=== PATIENT | male | born 1970 | race Hispanic/Latino ===

== ENCOUNTER 2021-10-30 20:27 | Observation (INO) | payer BC ==
[~2021-10-30 20:27] MED LIST: Iopamidol 370 76% 100 ML VIAL ONE
[2021-10-30] MEDS ORDERED: Dexamethasone 10 MG/ML VIAL ONE (21:02)
[2021-10-30] MEDS ORDERED: Acetaminophen 500 MG TAB ONE (21:02)
[2021-10-30 21:12] LABS: #Eosinphils 0.2 10x3/uL (0.0-0.5); #Monocytes 0.6 10x3/uL (0.0-1.1); #Neutrophils 3.3 10x3/uL (1.5-8.4); %Basophils 0.4 % (0.0-2.0); %Eosinophils 3.1 % (0.0-6.0); %Lymphocytes 21.3 % (18.0-47.0); %Monocytes 11.6 % (0.0-10.0); %Neutrophils 63.4 % (40.0-75.0); Mean Corpuscular HGB CONC 36.4 g/dL (32.0-36.0); Mean Corpuscular Hemoglobin 32.2 pg (27.0-33.0); Mean Corpuscular Volume 88.3 fl (81.2-95.1); Mean Platelet Volume 10.3 fl (7.4-10.4); Platelet Count 226 10x3/uL (150-450); Red Blood Cell (RBC) Count 4.97 10x6/uL (4.32-5.72); White Blood Cell (WBC) Count 5.2 10x3/uL (3.5-10.5)
[2021-10-30 21:25] LABS: ALT (SGPT) 79 U/L (8-55); AST (SGOT) 37 U/L (5-34); Albumin 4.4 g/dL (3.5-5.0); Alkaline Phosphatase 117 U/L (40-110); Anion Gap 15 mmol/L (10-20); BUN (Urea Nitrogen) 12 mg/dL (8.4-25.7); Bilirubin, Total 0.8 mg/dL (0.2-1.2); Calc. Creatinine Clearance 0 mL/min (70-130); Calcium 9.1 mg/dL (7.8-10.44); Carbon Dioxide 29 mmol/L (22-29); Chloride 98 mmol/L (98-107); Globulin 2.7 g/dL (2.4-3.5); Glucose 138 mg/dL (70-105); Potassium 3.8 mmol/L (3.5-5.1); Protein, Total 7.1 g/dL (6.0-8.3); Sodium 138 mmol/L (136-145)
[2021-10-30] MEDS ORDERED: Azithromycin 500 MG VIAL ONE (22:21)
[2021-10-30] MEDS ORDERED: Enoxaparin Sodium 80 MG/0.8 ML SYRINGE ONE (22:21)
[2021-10-30 22:56] LABS: SARS-CoV-2 NAA Rapid Test DETECTED (NotDetected)
[2021-10-30] MEDS ORDERED: Benzonatate 100 MG CAP PO PRN (23:06)
[2021-10-30] MEDS ORDERED: Acetaminophen 650 MG Suppository PR PRN (23:06)
[2021-10-30] MEDS ORDERED: Acetaminophen 325 MG TAB PO PRN (23:06)
[2021-10-30] MEDS ORDERED: Albuterol 200 PUFF (6.7GM INHALER) INH PRN (23:06)
[2021-10-30] MEDS ORDERED: diphenhydrAMINE 25 MG CAP PO PRN (23:12)
[2021-10-30] MEDS ORDERED: Communication Order-Pharmacy FS SCH (23:13)
[2021-10-30 23:40] LABS: D-Dimer Test 1.47 mg/L FEU (0.19-0.50); PTT 26.2 sec (22.0-33.0); Prothrombin Time 10.6 sec (9.5-12.1)
[2021-10-31] MEDS ORDERED: diphenhydrAMINE 25 MG CAP PO SCH (00:30)
[2021-10-31] MEDS ORDERED: diphenhydrAMINE 25 MG CAP ONE (02:14)
[2021-10-31] MEDS ORDERED: Ventolin HFA Inhaler 60 PUFF INHALER INH PRN (03:15)
[2021-10-31 03:21] LABS: Mean Corpuscular HGB CONC 36.4 g/dL (32.0-36.0); Mean Corpuscular Hemoglobin 32.2 pg (27.0-33.0); Mean Corpuscular Volume 88.4 fl (81.2-95.1); Mean Platelet Volume 10.4 fl (7.4-10.4); Platelet Count 212 10x3/uL (150-450); RBC Distribution Width 11.9 % (11.5-14.5); Red Blood Cell (RBC) Count 4.66 10x6/uL (4.32-5.72); White Blood Cell (WBC) Count 3.9 10x3/uL (3.5-10.5)
[2021-10-31 03:22] LABS: MDiff Complete? YES; Manual Diff?? YES
[2021-10-31 04:16] LABS: Band 15 % (5-11); Lymphocytes 20 % (21-51); Monocytes 3 % (0-10); Neutrophil 57 % (42-75); Reactive Lymphocytes 5 % (0-10)
[2021-10-31 04:17] LABS: Platelet Morphology Comment Appears Adequate
[2021-10-31 04:18] LABS: Toxic Granulation SLIGHT; Vacuoles SLIGHT
[2021-10-31 04:42] LABS: ALT (SGPT) 111 U/L (8-55); AST (SGOT) 81 U/L (5-34); Albumin 3.9 g/dL (3.5-5.0); Alkaline Phosphatase 143 U/L (40-110); Anion Gap 16 mmol/L (10-20); BUN (Urea Nitrogen) 12 mg/dL (8.4-25.7); Bilirubin, Total 0.6 mg/dL (0.2-1.2); Calc. Creatinine Clearance 0 mL/min (70-130); Calcium 8.4 mg/dL (7.8-10.44); Carbon Dioxide 21 mmol/L (22-29); Chloride 104 mmol/L (98-107); Globulin 2.8 g/dL (2.4-3.5); Glucose 180 mg/dL (70-105); Potassium 4.1 mmol/L (3.5-5.1); Protein, Total 6.7 g/dL (6.0-8.3); Sodium 137 mmol/L (136-145)
[2021-10-31 05:53] VITALS: BMI 27.8
[2021-10-31 07:21] VITALS: BP 128/88; TEMP 98.2
[2021-10-31] MEDS ORDERED: predniSONE 20 MG TAB PO SCH (08:00)
[2021-10-31] MEDS ORDERED: Dexamethasone 4 MG TAB PO SCH ×2 (08:00)
[2021-10-31] MEDS ORDERED: Dexamethasone 10 MG/ML VIAL SLOW IVP SCH (09:00)
[2021-10-31] MEDS ORDERED: Enoxaparin Sodium 80 MG/0.8 ML SYRINGE SC SCH (10:00)
== END 2021-10-31 10:29 | disposition home or self-care (01) ==
LOC: CSHERS 20:27 → INTOOBSV 23:26 → CSHERHOLD 23:26 → UNDOADMIN 10-31 00:31 → CSHERHOLD 10-31 00:31 → CSHICU 10-31 05:45
PROVIDERS: ADMIT Family Medicine; ATTEND Family Medicine
DX: U07.1 COVID-19 (principal); R74.01 Elevation of levels of liver transaminase levels; R21 Rash and other nonspecific skin eruption; K80.20 Calculus of gallbladder without cholecystitis without obstruction
CPT/HCPCS: 71045; 71275; 80053; 82728; 83880; 84484; 85025; 85379; 85610; 85652; 85730; 86140; 93005; 94760; 96372; G0378; J0456; J1100; J1650; J8540; Q9967